=== PATIENT | female | born 1995 | race Caucasian/White ===

== ENCOUNTER 2019-03-26 21:19 | Emergency (ER) | payer MEDICAID, OTHER ==
[~2019-03-26] VITALS: Ht 170.2 cm; Wt 70.9 kg
[2019-03-26 21:56] VITALS: Ht 170.2 cm; Wt 70.9 kg
[2019-03-27] MEDS ORDERED: MUPIROCIN22 GM TOPICAL (00:25)
[2019-03-27] MEDS ORDERED: TORADOL10 MG PO (00:25)
[2019-03-27] MEDS ORDERED: VIBRAMYCIN 100100 MG PO (00:25)
[2019-03-27 00:37] LABS: BASOPHILS 0.3 % (0-2); EOSINOPHILS 2.2 % (0-7); HEMATOCRIT 37.9 % (36.0-48.0); HEMOGLOBIN 13.4 g/dL (12-16); IMMATURE GRANULOCYTES 0.3 % (0-5); LYMPHOCYTES 27.3 % (15-50); MCH 32.3 pg (26.0-34.0); MCHC 35.4 g/dL (31.0-37.0); MCV 91.3 fL (80.0-100.0); NEUTROPHILS 60.9 % (40-80); PLATELET COUNT 245 10x3/uL (130-400); RBC 4.15 10x6/uL (4.00-5.40); RDW 11.5 % (11.5-14.5); WBC 7.3 10x3/uL (4.8-10.8)
[2019-03-27 01:45] VITALS: BP 122/71
== END 2019-03-27 01:45 | disposition home or self-care (01) ==
LOC: D.ER 21:19
PROVIDERS: Emergency Medicine
DX: L03.115 Cellulitis of right lower limb (principal)